=== PATIENT | male | born 1960 | race Caucasian/White ===

== ENCOUNTER 2017-02-01 18:37 | Emergency (ER) | payer OTHER ==
[~2017-02-01] VITALS: Ht 172.7 cm; Wt 66.2 kg
[2017-02-01] MEDS ORDERED: HYDROmorphone 1 MG/ML, 1ML IM ONE (19:39)
[2017-02-01] MEDS ORDERED: HYDROmorphone 1 MG/ML, 1ML ONE (20:09)
[2017-02-01 20:17] VITALS: BP 138/72
== END 2017-02-01 20:20 | disposition home or self-care (01) ==
LOC: ED 20:00
DX: M25.551 Pain in right hip (principal); F17.200 Nicotine dependence, unspecified, uncomplicated; J44.9 Chronic obstructive pulmonary disease, unspecified
CPT/HCPCS: 73502; 96372; 99284; J1170

== ENCOUNTER 2017-10-09 18:09 | Emergency (ER) | payer OTHER ==
[~2017-10-09] VITALS: Ht 172.7 cm; Wt 67.1 kg
[2017-10-09] MEDS ORDERED: HYDROmorphone 1 MG/ML, 1ML IM STA (19:13)
[2017-10-09] MEDS ORDERED: HYDROmorphone 2 MG/ML, 1ML ONE (19:16)
[2017-10-09 19:42] VITALS: BP 136/87
== END 2017-10-09 19:44 | disposition home or self-care (01) ==
LOC: ED 19:38
DX: G89.29 Other chronic pain (principal); M25.552 Pain in left hip; Z87.891 Personal history of nicotine dependence
CPT/HCPCS: 96372; 99283; J1170

== ENCOUNTER 2019-04-24 16:47 | Emergency (ER) | payer OTHER ==
[~2019-04-24] VITALS: Ht 172.7 cm; Wt 66.0 kg
[2019-04-24 19:31] VITALS: BP 112/60
== END 2019-04-24 19:34 | disposition home or self-care (01) ==
LOC: ED 17:17
DX: G89.29 Other chronic pain (principal); M54.5 Low back pain; M54.6 Pain in thoracic spine; J44.9 Chronic obstructive pulmonary disease, unspecified; F17.200 Nicotine dependence, unspecified, uncomplicated; M19.90 Unspecified osteoarthritis, unspecified site
CPT/HCPCS: 36415; 85651; 96372; 99283; J1170; J1885

== ENCOUNTER 2020-04-26 10:10 | Emergency (ER) | payer OTHER ==
[~2020-04-26] VITALS: Ht 172.7 cm; Wt 64.6 kg
[~2020-04-26 10:10] MED LIST: BLOOD PRESSURE; CYCL-259 PO; HYDR-3246 PO
[2020-04-26 10:12] VITALS: BP 149/75
--- NOTE | 2020-04-26 10:42 | NUR ---
LOW BACK AND RIGHT HIP PAIN AFTER FALLING ONE WEEK AGO. PT STATES HE HAD ALSO HIT HIS FOREHEAD BUT NO NELSON
== END 2020-04-26 11:48 | disposition home or self-care (01) ==
LOC: ED 11:03
DX: S39.012A Strain of muscle, fascia and tendon of lower back, initial encounter (principal); M47.816 Spondylosis without myelopathy or radiculopathy, lumbar region; M16.11 Unilateral primary osteoarthritis, right hip; G89.29 Other chronic pain; W19.XXXA Unspecified fall, initial encounter; Y93.89 Activity, other specified; Y92.488 Other paved roadways as the place of occurrence of the external cause; Y99.8 Other external cause status
CPT/HCPCS: 72110; 99284

== ENCOUNTER 2020-06-24 11:58 | Emergency (ER) | payer OTHER ==
[~2020-06-24] VITALS: Ht 172.7 cm; Wt 67.4 kg
[2020-06-24 12:05] VITALS: BP 136/58
[2020-06-24] MEDS ORDERED: METHOCARBAMOL 750 MG TABLET PO ONE (12:30)
[2020-06-24] MEDS ORDERED: METHOCARBAMOL 750 MG TABLET ONE (12:45)
== END 2020-06-24 13:21 | disposition home or self-care (01) ==
LOC: ED 12:57
DX: M25.512 Pain in left shoulder (principal); J44.9 Chronic obstructive pulmonary disease, unspecified
CPT/HCPCS: 93005; 99283

== ENCOUNTER 2021-03-21 08:18 | Day surgery (SDC) | payer SELFPAY ==
[~2021-03-21] VITALS: Ht 172.7 cm; Wt 72.0 kg
[~2021-03-21 08:18] MED LIST changes: -CYCL-259 PO; +CYCL10TA2 PO; -HYDR-3246 PO; +HYDR-3248 PO
--- NOTE | 2021-03-21 08:30 | NUR ---
THIS IS A 61 YO M BIB EMS FROM HOME W/ C/O BILAT LWR ABD PAIN STARTING AT 0630 THIS MORNING. PT ALSO REPORTS DIARRHEA AND DARK URINE THIS MORNING. PIV DONOR RELATIONS COORDINATOR. PT RESTING ON GURNEY W/ CALL LIGHT IN REACH AND SIDE RAILS UPX2. RESP EVEN AND UNLABORED, NADN.
[2021-03-21] MEDS ORDERED: FAMOTIDINE 20 MG/2 ML ONE (08:41)
[2021-03-21] MEDS ORDERED: MORPHINE SULFATE 4 MG/ML, 1ML ONE (08:41)
[2021-03-21] MEDS ORDERED: ONDANSETRON 2MG/ML, 2ML ONE (08:41)
--- NOTE | 2021-03-21 08:46 | NUR ---
PT MEDICATED PER EMAR.
[2021-03-21 08:47] LABS: MICROSCOPIC NOT IND
[2021-03-21 08:59] LABS: BASOPHILS % (AUTO) 0 % (0-1); EOSINOPHILS % (AUTO) 3 % (1-7); LYMPHOCYTES % (AUTO) 11 % (22-44); MEAN CORPUSCULAR HGB CONC 35.2 g/dL (33.2-36.2); MEAN PLATELET VOLUME 7.3 fL (7.4-10.4); MONOCYTES % (AUTO) 7 % (2-9); NEUTROPHILS % (AUTO) 79 % (42-75); PLATELET COUNT 234 x10^3/uL (130-400); RED BLOOD COUNT 4.78 x10^6/uL (4.38-5.82); RED CELL DISTRIBUTION WIDTH 13.4 % (9.4-14.8)
[2021-03-21] MEDS ORDERED: ONDANSETRON 2MG/ML, 2ML IVPush ONE (09:00)
[2021-03-21] MEDS ORDERED: SODIUM CHLORIDE 0.9% 1,000ML IVBOLUS ONE (09:00)
[2021-03-21] MEDS ORDERED: FAMOTIDINE 20 MG/2 ML IVPush ONE (09:00)
[2021-03-21] MEDS ORDERED: MORPHINE SULFATE 4 MG/ML, 1ML IVPush PRN ×2 (09:00→10:30)
[2021-03-21 09:08] LABS: ALANINE AMINOTRANSFERASE 28 U/L (12-78); ALBUMIN 3.8 g/dL (3.4-5.0); ANION GAP 5 mmol/L (5-15); CALCIUM 8.9 mg/dL (8.5-10.1); CHLORIDE 107 mmol/L (98-107); CREATININE 0.87 mg/dL (0.7-1.3)
[2021-03-21 09:11] LABS: ALKALINE PHOSPHATASE 54 U/L (45-117); BILIRUBIN,TOTAL 0.7 mg/dL (0.2-1.0); TOTAL PROTEIN 6.8 g/dL (6.4-8.2)
[2021-03-21] MEDS ORDERED: OMNIPAQUE 350 MG/ML, 100ML BOTTLE ONE (09:32)
[2021-03-21] MEDS ORDERED: CEFOTETAN PMX 1GM/50ML 50 ML IVPB ONE (10:00)
[2021-03-21 10:13] VITALS: BP 143/81
--- NOTE | 2021-03-21 10:20 | NUR ---
PT AWARE OF POC FOR SX. ABX STARTED. RESTING ON GURNEY W/ CALL LIGHT IN REACH AND SIDE RAILS UPX2. RESP EVEN AND UNLABORED, OTONIEL.
[2021-03-21] MEDS ORDERED: SODIUM CHLORIDE FLUSH 10ML SYR IVF PRN (10:30)
[2021-03-21] MEDS ORDERED: D5%-0.45% NACL 1,000 ML IV ONE (10:30)
[2021-03-21] MEDS ORDERED: ONDANSETRON 2MG/ML, 2ML IVPush PRN ×2 (10:30→12:30)
--- NOTE | 2021-03-21 10:40 | NUR ---
LAST PO MEAL 1900 LAST NIGHT. LAST PO FLUID 2 CUPS BLACK COFEE AT 0600 TODAY.
[2021-03-21] MEDS ORDERED: EPINEPHRINE 1 MG/ML, 1ML ONE (10:54)
[2021-03-21] MEDS ORDERED: BUPIVACAINE 0.25% ONE (10:54)
--- NOTE | 2021-03-21 11:04 | NUR ---
PT TAKEN TO SX. DARIA, OTONIEL.
[2021-03-21] MEDS ORDERED: MIDAZOLAM 1 MG/ML, 2ML ONE (11:12)
[2021-03-21] MEDS ORDERED: FENTANYL PF 250 MCG/5ML ONE (11:13)
[2021-03-21] MEDS ORDERED: LACTATED RINGERS 1,000 ML IV SCH (11:30)
[2021-03-21] MEDS ORDERED: CHLORHEXIDINE 15 ML UDC PO ONE (11:30)
[2021-03-21] MEDS ORDERED: MEPERIDINE/PF 25MG/0.5ML IVPush PRN (12:30)
[2021-03-21] MEDS ORDERED: KETOROLAC 30 MG/1 ML IV PRN (12:30)
[2021-03-21] MEDS ORDERED: METOCLOPRAMIDE 5 MG/ML, 2ML IV PRN (12:30)
[2021-03-21] MEDS ORDERED: PROMETHAZINE 25 MG/ML, 1ML IV PRN (12:30)
[2021-03-21] MEDS ORDERED: OXYcodone 5 MG/5 ML ORAL.SOL UDC PO PRN (12:30)
[2021-03-21] MEDS ORDERED: HYDROmorphone 1 MG/ML, 1ML INJ IV PRN (12:30)
[2021-03-21] MEDS ORDERED: LABETALOL 5MG/ML, 20ML IV PRN (12:30)
[2021-03-21] MEDS ORDERED: ALBUTEROL SULFATE 2.5 MG/3 ML NPPB PRN (12:30)
[2021-03-21] MEDS ORDERED: DIAZEPAM 5 MG/ML, 2ML IV PRN ×2 (12:30)
[2021-03-21] MEDS ORDERED: hydrALAzine 20 MG/ML, 1ML IV PRN (12:30)
[2021-03-21] MEDS ORDERED: ACETAMINOPHEN 650 MG/20.3 ML UDC ONE (13:02)
[2021-03-21] MEDS ORDERED: FENTANYL PF 100 MCG/2ML ONE (13:02)
[2021-03-21] MEDS ORDERED: OXYcodone 5 MG/5 ML ORAL.SOL UDC ONE (13:02)
[2021-03-21] MEDS: FENTANYL PF 100 MCG/2ML IV PRN ×2 (13:04→13:15)
[2021-03-21] MEDS ORDERED: KETOROLAC 30 MG/1 ML ONE (13:15)
== END 2021-03-21 14:48 | disposition home or self-care (01) ==
LOC: ED 10:11 → OUT 10:11 → EDSTATUS 11:30 → ED 14:41 → OUT 14:48
PROVIDERS: ATTEND Emergency Medicine
DX: K35.30 Acute appendicitis with localized peritonitis, without perforation or gangrene (principal); I10 Essential (primary) hypertension; J44.9 Chronic obstructive pulmonary disease, unspecified; Z20.822 Contact with and (suspected) exposure to COVID-19; Z79.899 Other long term (current) drug therapy
CPT/HCPCS: 36415; 44970; 74177; 80053; 81003; 83690; 85025; 87635; 88304; 96361; 96365; 96375; 99285; J0171; J1885; J2250; J2270; J2405; J3010; J7030; J7120; Q9967